=== PATIENT | female | born 1990 | race Caucasian/White ===

== ENCOUNTER → 2020-03-06 17:32 | Outpatient (CLI) | payer OTHER, SELFPAY ==
--- NOTE | ~2020-03-06 | XR_ITS ---
EXAMINATION: XR wrist RT min 3V DATE: 03/06/2020 18:17 INDICATION: Right wrist pain TECHNIQUE: Posteroanterior, ulnar deviation, oblique, and lateral views of the right wrist were obtai rudy. COMPARISON: none FINDINGS: Alignment is normal. No fracture. Joint spaces are normal. No erosions. Soft tissues are unremarkable . IMPRESSION: 1. Normal right wrist radiographs. Reviewed, dictated and finalized at location H. FIT SPECIALIST
== END ==
PROVIDERS: PCP Nurse Practitioner Family; Visit Provider Nurse Practitioner Family
DX: M25.531 Pain in right wrist (principal)
CPT/HCPCS: 73110

== ENCOUNTER → 2020-03-10 08:18 | Outpatient (CLI) | payer OTHER, SELFPAY ==
--- NOTE | ~2020-03-10 | US_ITS ---
US abdomen complete EXAMINATION: US Abdomen Complete INDICATION: Abdomen pain. PROCEDURE: Realtime High Resolution abdomen ultrasound. COMPARISON: No prior studies for comparison FINDINGS: Gallbladder is surgically absent. Common bile duct measures 5 mm. Liver echotexture is increased, consistent with fatty infiltration.. Pancreas within normal limits. Pancreatic tail is obscured by bowel gas. Spleen is unremarkeable. Renal echotexture is within norm al limits bilaterally without hydronephrosis, contour deforming mass or renal stone. Right kidney libia sures 9.7 cm. Left kidney measures 12.8 cm. Visualized aspects of the aorta and IVC are within normal limits. Portal vein is patent. IMPRESSION: 1: Hepatic steatosis. Reviewed, dictated and finalized at location A. WORKER IMPRESSION: 1: Hepatic steatosis.
== END ==
PROVIDERS: Visit Provider Nurse Practitioner Family
DX: R10.9 Unspecified abdominal pain (principal); K76.0 Fatty (change of) liver, not elsewhere classified; R11.10 Vomiting, unspecified
CPT/HCPCS: 76700

== ENCOUNTER 2021-12-20 16:22 | Emergency (ER) | payer OTHER, SELFPAY ==
[2021-12-20 16:34] VITALS: BP 125/68; PULSE 87; RESP 18; TEMP 36.3; O2SAT 99
--- NOTE | 2021-12-20 16:48 | ED.GENADULT ---
HPI - General Adult General Chief complaint: Upper Respiratory Infection Stated complaint: sorethroat History of Present Illness HPI narrative: Patient is a 31-year-old female presents to the [facility] care via POV for evaluation of a sore throat that began 3 days ago. Additionally, she reports exposure to strep throat from her 3 children. Ibuprofen and Tylenol provides some relief. Swallowing worsens her pain. Related Data Home Medications Medication Instructions Recorded Confirmed levothyroxine 112 mcg tablet 112 mcg DAILY 12/20/21 12/20/21 Allergies Allergy/AdvReac Type Severity Reaction Status Date / Time No Known Allergies Allergy Verified 12/20/21 16:45 Review of Systems Review of Systems: Denies fever, chills, sweats, change in appetite, rhinorrhea, headaches, sinus problems, ear pain, drooling, difficulty swallowing, voice changes, cough, shortness of breath, abdominal pain, nausea, vomiting, diarrhea, chest pain, heart palpitations Exam Narrative: GENERAL: Well-appearing, well-nourished, and in no acute distress. HEAD: Normocephalic, atraumatic. No sinus tenderness or facial swelling appreciated. EYES: PERRLA and EOMI. No evidence of erythema, swelling, or drainage. ENT: Bilateral external ears and ear canals normal. Bilateral TMs are normal.No TM perforation. Nares clear, no rhinorrhea or epistaxis. Bilateral turbinates without erythema/ swelling. Mucous membranes moist and pink. Uvula is midline without erythema and swelling. Moderate erythema noted to posterior pharynx and bilateral tonsils otherwise normal. Breath odor and voice normal. NECK: Supple. Bilateral submandibular lymphadenopathy appreciated upon palpation. No nuchal rigidity appreciated. CHEST: Bilateral lung abel are clear to auscultation. No respiratory distress. No evidence of cough or pleuritic cp upon examination. HEART: Regular rate and rhythm. No murmur, gallop, or rub heard. EXTREMITIES: Normal range of motion. No edema. SKIN: Warm, dry, no rash. NEURO: No focal deficits. Alert and oriented x3. Course Course Level of Care: Express Care Visit Vital Signs Vital signs: Vital Signs Temperature 97.4 F L 12/20/21 16:34 Pulse Rate 87 12/20/21 16:34 Respiratory Rate 18 12/20/21 16:34 Blood Pressure 125/68 12/20/21 16:34 Pulse Oximetry 99 12/20/21 16:34 Oxygen Delivery Room Air 12/20/21 16:34 Temperature 97.4 F L 12/20/21 16:34 Pulse Rate 87 12/20/21 16:34 Respiratory Rate 18 12/20/21 16:34 Blood Pressure 125/68 12/20/21 16:34 Pulse Oximetry 99 12/20/21 16:34 Oxygen Delivery Room Air 12/20/21 16:34 Medical Decision Making Differential Diagnosis Differential Diagnosis: Allergic rhinitis, ABRS, acute viral sinusitis, strep pharyngitis, nasopharyngitis, bronchitis, pneumonia, AOM, otitis externa, viral URI, influenza, covid-19 Vital Signs Vital Signs: Vital Signs Temperature 97.4 F L 12/20/21 16:34 Pulse Rate 87 12/20/21 16:34 Respiratory Rate 18 12/20/21 16:34 Blood Pressure 125/68 12/20/21 16:34 Pulse Oximetry 99 12/20/21 16:34 Oxygen Delivery Room Air 12/20/21 16:34 Temperature 97.4 F L 12/20/21 16:34 Pulse Rate 87 12/20/21 16:34 Respiratory Rate 18 12/20/21 16:34 Blood Pressure 125/68 12/20/21 16:34 Pulse Oximetry 99 12/20/21 16:34 Oxygen Delivery Room Air 12/20/21 16:34 Reviewed Critical Care Time Critical Care Time Critical Care Time: No Discharge Plan Discharge Clinical Impression: Acute streptococcal pharyngitis Patient Disposition: Home, Self-Care Condition: Stable Instructions: Antibiotic Form, Strep Throat (ED) Additional Instructions: See discharge instruction for more detailed information. You tested positive for Group A strep. Infection control: *Take the entire course of antibiotics. *Throw away your current toothbrush and begin using a new toothbrush in 48 hours in order to
== END 2021-12-20 16:59 | disposition home or self-care (01) ==
PROVIDERS: Emergency Provider Nurse Practitioner Family; PCP Family Medicine
DX: J02.0 Streptococcal pharyngitis (principal)
CPT/HCPCS: 87880; 99213; G0463

== ENCOUNTER 2022-03-05 08:01 | Emergency (ER) | payer OTHER, MEDICAID, SELFPAY ==
--- NOTE | 2022-03-05 08:08 | ED.URI ---
HPI - URI/Sore Throat General Chief Complaint: Upper Respiratory Infection Stated Complaint: sore throat Time Seen by Provider: 03/05/22 08:08 Source: patient, RN notes reviewed and old records reviewed Mode of arrival: ambulatory Limitations: no limitations History of Present Illness HPI Narrative: 31-year-old female presents to the [facility] with complaints of a sore throat since Tuesday, 2 days. patient reports for her 8 children have strep. Has not taken anything for pain. Denies fevers, chest pain, abdominal pain MD elicited complaint: sore throat Consistency: constant Related Data Home Medications Medication Instructions Recorded Confirmed levothyroxine 112 mcg tablet 112 mcg DAILY 12/20/21 12/20/21 Allergies Allergy/AdvReac Type Severity Reaction Status Date / Time No Known Allergies Allergy Verified 12/20/21 16:45 Review of Systems Review of Systems: All systems reviewed & are unremarkable except as noted in HPI and below Constitutional: Constitutional: Reports no additional constitutional complaints, Denies chills and Denies fever(s) Eyes: Eyes: Reports no additional eye complaints ENT: Reports as per HPI and Reports sore throat Cardiovascular: Cardiovascular: Reports no additional cardiovascular complaints Respiratory: Respiratory: Reports no additional respiratory complaints Gastrointestinal: Gastrointestinal: Reports no additional gastrointestinal complaints Musculoskeletal: Musculoskeletal: Reports no additional musculoskeletal complaints Integumentary/Breasts: Skin/Breast: Reports system reviewed and no additional complaints, except as docu Neurologic: Reports system reviewed and no additional complaints, except as documented Psychiatric: Psychiatric: Reports no additional psychiatric complaints Allergic/Immunologic: Allergic/Immunologic: Reports no additional allergic/immunologic complaints PMFSH Past Medical History Medical History (Updated 03/05/22 @ 08:30 by Suzy Graham APRN) Thyroid disease Surgical History Surgical History (Updated 03/05/22 @ 08:16 by Suzy Graham APRN) History of Social History Social History (Updated 03/05/22 @ 08:16 by Suzy Graham APRN) Living arrangements: with family Gender identity (if verbalized by the patient): Female Comments At the time of my signature, I reviewed and agree with the nursing past medical, surgical, social, and family history. There is no relevant family history pertinent to the patient complaint. Exam Const: General: healthy appearing, comfortable, no acute distress, well developed, alert and well nourished Nutritional Appearance: well nourished and obese Orientation/consciousness: patient oriented x3 Limitations: no limitations HENMT: Head: normal to inspection Ears: external ears normal, TM's normal bilaterally and EAC's normal Face/Nose/Sinus: Normal external nose present and Normal nares present Face and sinus: normal facial exam Throat: uvula midline, abnormal tonsil bilateral erythema, exudates and hypertrophy 2+ and no uvular edema Eyes: General: appearance normal, both eyes and all related structures Pupils: Equal, round and reactive pupils present Neck: Neck: normal visual inspection, full ROM, no lymphadenopathy and no meningeal signs Chest: Chest palpation & inspection: normal inspection of the chest Resp: Effort & Inspection: normal respiratory effort and no use of accessory muscles Auscultation: clear to auscultation bilaterally, no crackles, no rales, no rhonchi and no wheezes Cardio: Rate: regular rate Rhythm: regular rhythm Back/Spine/Pelvis: Cervical Spine: cervical ROM normal and No Cervical spine tenderness Thoracic/Lumbar Spine: thoracic and lumbar spine normal to inspection and thoraco-lumbar ROM normal Skin: General skin exam: normal color Rashes: no rashes Wounds: no wounds Neuro: General: patient oriented x3, moves all extremities, no meningeal signs an
[2022-03-05 08:09] VITALS: BP 126/72; PULSE 96; RESP 18; TEMP 36.6; O2SAT 100
== END 2022-03-05 08:32 | disposition home or self-care (01) ==
PROVIDERS: Emergency Provider Nurse Practitioner; PCP Family Medicine
DX: J02.0 Streptococcal pharyngitis (principal)
CPT/HCPCS: 87880; 99213; G0463

== ENCOUNTER 2022-06-17 16:38 | Emergency (ER) | payer OTHER, MEDICAID, SELFPAY ==
[2022-06-17 16:47] VITALS: BP 132/74; PULSE 82; RESP 18; TEMP 36.7; O2SAT 99
--- NOTE | 2022-06-17 16:57 | ED.URI ---
HPI - URI/Sore Throat General Chief Complaint: Upper Respiratory Infection Stated Complaint: Sore Throat Time Seen by Provider: 06/17/22 16:51 Source: patient Mode of arrival: ambulatory Limitations: no limitations History of Present Illness HPI Narrative: Patient presents today complaining of intermittent sore throat, headache, fatigue x3 weeks. Currently rates her pain 4/10 and has been taking Tylenol with relief. Denies shortness of breath, difficulty swallowing, fever. No history of acid reflux or heartburn. Related Data Home Medications Medication Instructions Recorded Confirmed levothyroxine 112 mcg tablet 112 mcg DAILY 12/20/21 12/20/21 Allergies Allergy/AdvReac Type Severity Reaction Status Date / Time No Known Allergies Allergy Verified 06/17/22 16:59 Review of Systems Review of Systems: CONSTITUTIONAL: Denies body aches, fever, chills, or sweats. EYES: Denies visual changes, redness, or discharge. ENT: Denies rhinorrhea, congestion, or otalgia.+ sore throat CARDIOVASCULAR: Denies chest pain, palpitations, or edema. RESPIRATORY: Denies cough or dyspnea. GASTROINTESTINAL: Denies abdominal pain, nausea, vomiting, or diarrhea. GENITOURINARY: Denies dysuria or hematuria. SKIN: Denies rash, itching, or wounds. MUSCULOSKELETAL: Denies back pain, joint pain, or myalgia. NEUROLOGIC: Denies headache, numbness, tingling, or weakness. PSYCH: Denies depression or anxiety. PMFSH Past Medical History Medical History Thyroid disease Surgical History Surgical History History of Social History Social History Living arrangements: with family Gender identity (if verbalized by the patient): Female Comments At time of signature, I have reviewed and agree with nursing past medical, surgical, social and family history unless otherwise noted. Please see nursing chart for further information. There is no relevant family history pertinent to the presenting complaint Exam Narrative: GENERAL: Well-appearing, well-nourished, and in no acute distress. HEAD: Normocephalic, atraumatic. EYES: EOMI. No redness or drainage. Conjunctivae normal. ENT: Mucous membranes pink and moist. Nares clear. No rhinorrhea. TMs normal bilaterally. Throat normal. Uvula midline. NECK: Normal AROM. Supple. No lymphadenopathy. CHEST: No respiratory distress. Clear to auscultation. HEART: Regular rate and rhythm. No murmur appreciated. Normal peripheral pulses. EXTREMITIES: Normal range of motion. No edema. SKIN: Warm, dry, no rash. Capillary refill normal. Normal skin turgor. NEURO: No focal deficits. Alert and oriented x3. Gait steady. PSYCH: Normal affect. No signs of depression or anxiety. Course Course Level of Care: Express Care Visit Vital Signs Vital signs: Vital Signs Temperature 98.0 F 06/17/22 16:47 Pulse Rate 82 06/17/22 16:47 Respiratory Rate 18 06/17/22 16:47 Blood Pressure 132/74 06/17/22 16:47 Pulse Oximetry 99 06/17/22 16:47 Oxygen Delivery Room Air 06/17/22 16:47 Temperature 98.0 F 06/17/22 16:47 Pulse Rate 82 06/17/22 16:47 Respiratory Rate 18 06/17/22 16:47 Blood Pressure 132/74 06/17/22 16:47 Pulse Oximetry 99 06/17/22 16:47 Oxygen Delivery Room Air 06/17/22 16:47 Reviewed. Pt has been instructed to follow up with her PCP regarding her elevated blood pressure today. MDM - URI/Sore Throat MDM Narrative Medical decision making narrative: Rapid strep negative. Exam is normal. No prescription medications indicated at this time. Instructed patient to try an antihistamine to see if her symptoms have an allergic component. She can also try an acid reducing medication if symptoms persist due to see if it is GERD. She leaves for vacation tomorrow. Told her if her sy
== END 2022-06-17 17:10 | disposition home or self-care (01) ==
PROVIDERS: Emergency Provider Nurse Practitioner; PCP Family Medicine
DX: J02.9 Acute pharyngitis, unspecified (principal)
CPT/HCPCS: 87081; 87880; 99213; G0463

== ENCOUNTER 2022-10-12 17:35 | Emergency (ER) | payer OTHER, MEDICAID, SELFPAY ==
--- NOTE | 2022-10-12 17:41 | ED.URI ---
HPI - URI/Sore Throat General Stated Complaint: Sore Throat,Cough Time Seen by Provider: 10/12/22 17:44 History of Present Illness HPI Narrative: 32 y/o female presented for c/o sore throat and cough for 6 days. Also with decreased appetite. States it feels like strep throat. Her 4 children tested positive for strep last week. Denies cp, sob, n/v/d/f/c. Taking Tylenol or ibuprofen as needed for pain. Related Data Home Medications Medication Instructions Recorded Confirmed levothyroxine 112 mcg tablet 112 mcg DAILY 12/20/21 06/17/22 Allergies Allergy/AdvReac Type Severity Reaction Status Date / Time No Known Allergies Allergy Verified 06/17/22 16:59 Review of Systems Review of Systems: CONSTITUTIONAL: Denies body aches, fever, chills, or sweats. EYES: Denies visual changes, redness, or discharge. ENT: Reports sore throat Denies rhinorrhea, congestion, or otalgia. CARDIOVASCULAR: Denies chest pain, palpitations, or edema. RESPIRATORY: Denies dyspnea. GASTROINTESTINAL: Denies abdominal pain, nausea, vomiting, or diarrhea. SKIN: Denies rash, itching, or wounds. MUSCULOSKELETAL: Denies back pain, joint pain, or myalgia. NEUROLOGIC: Denies headache PMFSH Past Medical History Medical History Thyroid disease Surgical History Surgical History History of Social History Social History Living arrangements: with family Gender identity (if verbalized by the patient): Female Exam Narrative: GENERAL: well-appearing, no acute distress. EYES: conjunctivae clear ENT: Mucous membranes moist. TM pearly wang with normal light reflex bilaterally; no tragal tenderness. Oropharynx mildly erythematous without lesions. Tonsils 1+ without exudate. No drooling, no hoarseness, no trismus, uvula midline. No tripod positioning, hot potato voice, or soft palate swelling. NECK: Supple. No lymphadenopathy CHEST: Clear to auscultation, breath sounds equal. No respiratory distress, speaks in full sentences. HEART: Regular rate and rhythm. No murmur heard. SKIN: Warm, dry, no rash. NEURO: Alert and oriented x3. Course Course Emergency Course: Patient is aware of diagnosis, understands and agrees to treatment plan. Anticipatory guidance given. Patient agrees to follow-up as directed and is aware of reasons to seek care at the emergency department. Portions of this record may have been created with voice recognition software Level of Care: Express Care Visit MDM - URI/Sore Throat MDM Narrative Medical decision making narrative: strep result reviewed with pt. Advise supportive treatments. Patient is appropriate for outpatient treatment and follow-up. Differential Diagnosis Differential diagnosis: Likely upper respiratory infection, viral infection and pharyngitis Discharge Plan Discharge Clinical Impression: Pharyngitis Patient Disposition: Home, Self-Care Condition: Stable Instructions: Antibiotic Form Additional Instructions: Rapid strep swab was negative today You will be notified in a few days if the culture comes back positive for strep, and appropriate antibiotics will be called in at that time. if symptoms are due to a viral illness, it is not treated with antibiotics. Viral symptoms can be present for up to 10-14 days. Recommend Flonase spray and Zyrtec for sinus congestion Cough syrup may cause drowsiness; avoid driving or take it at night time. Tylenol every 8 hours as needed for pain/fever Soft foods, cool liquids, warm tea. Gargle with warm saltwater twice a day. Chloraseptic spray and throat lozenges. Rest and stay hydrated. --Follow up with your PCP --Go to the ER immediately if you cannot swallow your saliva, trouble breathing/wheezing, throat swelling, pain is persistent and severe Presc
[2022-10-12 17:44] VITALS: BP 117/72; PULSE 62; RESP 16; TEMP 36.1; O2SAT 100
== END 2022-10-12 18:00 | disposition home or self-care (01) ==
PROVIDERS: Emergency Provider Nurse Practitioner Family; PCP Family Medicine
DX: J02.9 Acute pharyngitis, unspecified (principal); E07.9 Disorder of thyroid, unspecified
CPT/HCPCS: 87081; 87880; 99213; G0463

== ENCOUNTER 2023-04-16 17:23 | Emergency (ER) | payer OTHER, MEDICAID, SELFPAY ==
[2023-04-16 17:52] VITALS: BP 127/73; PULSE 68; RESP 16; TEMP 36.9; O2SAT 100
--- NOTE | 2023-04-16 18:31 | ED.FEMALEGU ---
HPI - Female Genitourinary General Chief complaint: Urogenital-Female Stated complaint: yeast Infection Time Seen by Provider: 04/16/23 18:31 Source: patient Mode of arrival: ambulatory Limitations: no limitations History of Present Illness HPI Narrative: 32 yo F presents with c/o vaginal itching and irritation. similar symptoms in the past. taking PCN for strep. Requesting diflucan. All systems reviewed and negative except as noted above. Related Data Home Medications Medication Instructions Recorded Confirmed levothyroxine 112 mcg tablet 112 mcg DAILY 12/20/21 04/16/23 Allergies Allergy/AdvReac Type Severity Reaction Status Date / Time No Known Allergies Allergy Verified 04/16/23 17:43 Review of Systems Review of Systems: CONSTITUTIONAL: Denies fever, chills, or sweats. EYES: Denies visual changes, redness, or discharge. ENT: Denies rhinorrhea, congestion, sore throat, or otalgia. CARDIOVASCULAR: Denies chest pain, palpitations, or edema. RESPIRATORY: Denies cough or dyspnea. GASTROINTESTINAL: Denies abdominal pain, nausea, vomiting, or diarrhea. GENITOURINARY: Denies dysuria or hematuria. Reports vaginal itching and irritation. SKIN: Denies rash or itching. MUSCULOSKELETAL: Denies back pain, joint pain, or myalgia. NEUROLOGIC: Denies headache, numbness, or weakness. PSYCHIATRIC: Denies anxiety or depression. All other systems reviewed are negative, except as documented in HPI. PMFSH Past Medical History Medical History Thyroid disease Surgical History Surgical History History of Social History Social History Living arrangements: with family Gender identity (if verbalized by the patient): Female Comments At time of signature, agree with nursing past medical, surgical, social and family history. There is no relevant family history pertinent to the presenting complaint. Exam Narrative: GENERAL: This is a well-nourished, well-developed patient, in no apparent distress. HEAD: normocephalic, atraumatic. EYES: PERRL. Sclera clear/white. Vision is grossly intact. EARS: External ears normal NOSE: External nose normal NECK: Neck supple, non-tender without lymphadenopathy, masses or thyromegaly. CARDIOVASCULAR: Regular rate and rhythm without murmurs, gallops, or rubs. RESPIRATORY: Clear to auscultation. Breath sounds equal bilaterally. No wheezes, rales, or rhonchi. SKIN: warm, Dry, intact with no suspicious lesions or rash, good texture and turgor. NEURO: awake, alert, and oriented to person, place and time. There were no obvious focal neurologic abnormalities. EXTREMITIES: No joint tenderness, effusion, or edema noted. Pelvic exam deferred by patient. Course Course Level of Care: Express Care Visit Vital Signs Vital signs: Vital Signs Temperature 36.9 C 04/16/23 17:52 Pulse Rate 68 04/16/23 17:52 Respiratory Rate 16 04/16/23 17:52 Blood Pressure 127/73 04/16/23 17:52 Pulse Oximetry 100 04/16/23 17:52 Oxygen Delivery Room Air 04/16/23 17:52 Temperature 36.9 C 04/16/23 17:52 Pulse Rate 68 04/16/23 17:52 Respiratory Rate 16 04/16/23 17:52 Blood Pressure 127/73 04/16/23 17:52 Pulse Oximetry 100 04/16/23 17:52 Oxygen Delivery Room Air 04/16/23 17:52 Reviewed MDM - Female Genitourinary MDM Narrative Medical decision making narrative: Patient is aware of diagnosis, understands and agrees to treatment plan. Anticipatory guidance given. Patient agrees to follow-up as directed and is aware of reasons to seek care at the emergency department. Portions of this record may have been created with voice recognition software Differential Diagnosis Differential diagnosis: Likely vaginitis Discharge Plan Discharge Clinical Impression: Vaginal ye
== END 2023-04-16 18:41 | disposition home or self-care (01) ==
PROVIDERS: Emergency Provider Nurse Practitioner Family
DX: B37.31 Acute candidiasis of vulva and vagina (principal); E03.9 Hypothyroidism, unspecified
CPT/HCPCS: 99213; G0463